=== PATIENT | male | born 1985 | race Caucasian/White ===

== ENCOUNTER 2018-04-14 12:41 | Day surgery (SDC) | payer OTHER, MEDICAID ==
[~2018-04-14 12:41] MED LIST: DEXAMETHASONE 4 MG/ML 1 ML INJ; ONDANSETRON 4 MG INJ
[2018-04-14] MEDS ORDERED: LIDOCAINE 2% (SDV) 5 ML INJ (14:28)
[2018-04-14] MEDS ORDERED: PROPOFOL 20 ML (14:28)
[2018-04-14] MEDS ORDERED: HYDROmorphONE 1 MG/5 ML IV SYRINGE IV ×3 (14:30)
[2018-04-14] MEDS ORDERED: ONDANSETRON 4 MG INJ IV (14:30)
[2018-04-14] MEDS ORDERED: MIDAZOLAM 1 MG/ML 2 ML INJ IV (14:30)
[2018-04-14] MEDS ORDERED: EPHEDrine SULFATE 50 MG/5 ML SYG IV (14:30)
[2018-04-14] MEDS ORDERED: OXYCODONE/ACETAMINOPHEN (5/325) TAB PO ×2 (14:30)
[2018-04-14] MEDS ORDERED: ALBUTEROL 0.083% (NEB) 2.5 MG/3 ML AMP HHN (14:30)
[2018-04-14] MEDS ORDERED: MEPERIDINE 25 MG INJ IV (14:30)
[2018-04-14] MEDS ORDERED: METOCLOPRAMIDE 10 MG INJ IV (14:30)
[2018-04-14] MEDS ORDERED: hydrALAzine 20 MG INJ IV (14:30)
[2018-04-14] MEDS ORDERED: KETOROLAC 30 MG INJ IV (14:30)
[2018-04-14] MEDS ORDERED: DIPHENHYDRAMINE 50 MG INJ IV (14:30)
[2018-04-14] MEDS ORDERED: LABETALOL HCL 20MG INJ IV (14:30)
[2018-04-14] MEDS ORDERED: FENTAnyl 50 MCG/ML VIAL IV ×3 (14:30)
[2018-04-14] MEDS: LIDOCAINE 1%/EPI 30 ML INJ (14:43)
[2018-04-14] MEDS ORDERED: ROCURONIUM 50 MG INJ (14:56)
[2018-04-14] MEDS ORDERED: CEFAZOLIN 1 GM INJ (14:56)
[2018-04-14] MEDS ORDERED: EPINEPHrine 1 MG INJ (15:14)
[2018-04-14] MEDS ORDERED: SUGAMMADEX SODIUM 200 MG/2 ML VIAL IV (15:20)
[2018-04-14] MEDS ORDERED: HYDROCODONE/APAP (5/325) TAB PO (16:00)
== END 2018-04-14 17:02 | disposition home or self-care (01) ==
LOC: SDS 12:41
DX: K11.5 Sialolithiasis (principal)
CPT/HCPCS: 42440; 88300

== ENCOUNTER 2018-05-26 12:00 | Day surgery (SDC) | payer OTHER ==
[2018-05-26] MEDS ORDERED: CEFAZOLIN 1 GM INJ (13:57)
[2018-05-26] MEDS ORDERED: NEOSTIGMINE 3 MG/3 ML SYRINGE (13:57)
[2018-05-26] MEDS ORDERED: GLYCOPYRROLATE 0.4 MG INJ (13:57)
[2018-05-26] MEDS ORDERED: PROPOFOL 20 ML (13:57)
[2018-05-26] MEDS ORDERED: ROCURONIUM 50 MG INJ (13:57)
[2018-05-26] MEDS ORDERED: ONDANSETRON 4 MG INJ (13:58)
[2018-05-26] MEDS ORDERED: DEXAMETHASONE 4 MG/ML 1 ML INJ ×2 (13:58→14:11)
[2018-05-26] MEDS ORDERED: FENTAnyl 50 MCG/ML VIAL (13:58)
[2018-05-26] MEDS ORDERED: MIDAZOLAM 1 MG/ML 2 ML INJ (13:58)
[2018-05-26] MEDS ORDERED: ALBUTEROL 0.083% (NEB) 2.5 MG/3 ML AMP HHN (14:00)
[2018-05-26] MEDS ORDERED: LABETALOL HCL 20MG INJ IV (14:00)
[2018-05-26] MEDS ORDERED: FENTAnyl 50 MCG/ML VIAL IV ×2 (14:00)
[2018-05-26] MEDS ORDERED: DIPHENHYDRAMINE 50 MG INJ IV (14:00)
[2018-05-26] MEDS ORDERED: MEPERIDINE 25 MG INJ IV (14:00)
[2018-05-26] MEDS ORDERED: HYDROmorphONE 1 MG/5 ML IV SYRINGE IV ×2 (14:00)
[2018-05-26] MEDS ORDERED: TRIMETHOBENZAMIDE 100 MG/ML VIAL IM (14:00)
[2018-05-26] MEDS ORDERED: MIDAZOLAM 1 MG/ML 2 ML INJ IV (14:00)
[2018-05-26] MEDS ORDERED: OXYCODONE/ACETAMINOPHEN (5/325) TAB PO ×2 (14:00)
[2018-05-26] MEDS ORDERED: EPHEDrine SULFATE 50 MG/5 ML SYG IV (14:00)
[2018-05-26] MEDS ORDERED: hydrALAzine 20 MG INJ IV (14:00)
[2018-05-26] MEDS ORDERED: IPRATROPIUM (NEB) 0.5 MG/2.5 ML AMP HHN (14:00)
[2018-05-26 14:05] LABS: INR 0.97; PARTIAL THROMBOPLASTIN TIME 28.4 Sec (23.0-35.0)
[2018-05-26] MEDS ORDERED: CLINDAMYCIN 900 MG/D5W (PMX) 50 ML IVPB (14:09)
[2018-05-26] MEDS ORDERED: BUPIVACAINE 0.5% (SDV) 30 ML INJ (14:10)
[2018-05-26] MEDS ORDERED: LIDOCAINE 1% (MDV) 20 ML INJ (14:10)
[2018-05-26] MEDS ORDERED: LIDOCAINE 1%/EPI (1:100,000) (MDV) 20 ML (14:11)
[2018-05-26] MEDS ORDERED: LIDOCAINE 1%/EPI 30 ML INJ (14:11)
[2018-05-26] MEDS ORDERED: SUGAMMADEX SODIUM 200 MG/2 ML VIAL IV (14:20)
[2018-05-26] MEDS: ONDANSETRON 4 MG INJ IV (15:22)
[2018-05-26] MEDS: FENTAnyl 50 MCG/ML VIAL IV (15:23)
[2018-05-26] MEDS ORDERED: morphine 10 MG INJ IM (15:30)
[2018-05-26] MEDS ORDERED: HYDROCODONE/APAP (5/325) TAB PO (15:30)
[2018-05-26] MEDS: HYDROmorphONE 1 MG/5 ML IV SYRINGE IV (16:12)
== END 2018-05-26 17:02 | disposition home or self-care (01) ==
LOC: SDS 12:00
DX: K11.23 Chronic sialoadenitis (principal); E78.5 Hyperlipidemia, unspecified
CPT/HCPCS: 42440; 85610; 85730; 88307